=== PATIENT | female | born 1970 | race Caucasian/White ===

== ENCOUNTER 2024-03-02 19:45 | Emergency (ER) | payer BC ==
[2024-03-02 19:58] VITALS: BP 105/55; PULSE 84; RESP 18; TEMP 97.8; BMI 35.4
[2024-03-02] MEDS ORDERED: FAMOTIDINE 20 MG/50 ML IVPB 20 MG/50 ML MG IVPB ONE (21:42)
[2024-03-02] MEDS ORDERED: ACETAMINOPHEN INJECTION 100 ML IVPB ONE (21:42)
[2024-03-02] MEDS ORDERED: ONDANSETRON 4 MG/2 ML VIAL ONE (21:42)
[2024-03-02 21:44] LABS: BASO % 0.6 % (0-2.0); EOS % 5.3 % (0-4.5); HEMATOCRIT 40.3 % (32.4-45.2); HEMOGLOBIN 13.8 GM/dL (10.7-15.3); LYMPH % 34.1 % (8-40); MCH 29.6 pg (25.7-33.7); MCHC 34.4 g/dl (32.0-36.0); MEAN CELL VOLUME 86.3 fl (80-96); MEAN PLT VOLUME 8.1 fl (7.5-11.1); MONO % 6.6 % (3.8-10.2); NEUT % 53.4 % (42.8-82.8); PLATELET COUNT 271 10^3/uL (134-434); RBC 4.67 M/mm3 (3.60-5.2); RDW 14.1 % (11.6-15.6); WHITE BLOOD COUNT 8.5 K/mm3 (4.0-10.0)
[2024-03-02] MEDS ORDERED: ONDANSETRON *ODT* 4 MG TABLET ONE (21:49)
[2024-03-02] MEDS ORDERED: FAMOTIDINE 20 MG TABLET ONE (21:49)
[2024-03-02] MEDS ORDERED: ACETAMINOPHEN 325 MG TABLET (FP) ONE (21:50)
[2024-03-02 21:56] LABS: INR 1.05 (0.83-1.09); PROTHROMBIN TIME (PATIENT) 11.9 SEC (9.7-13.0)
[2024-03-02] MEDS: FAMOTIDINE 20 MG/50 ML IVPB 20 MG/50 ML MG IVPB ONE (21:59)
[2024-03-02] MEDS: ONDANSETRON 4 MG/2 ML VIAL IVPUSH ONE (21:59)
[2024-03-02] MEDS: ACETAMINOPHEN 1000 MG/100 ML BAG IVPB ONE (21:59)
[2024-03-02 22:00] LABS: POTASSIUM 3.8 mmol/L (3.5-5.1)
[2024-03-02] MEDS: ACETAMINOPHEN 500 MG TABLET (FP) PO ONE (22:00)
[2024-03-02] MEDS: FAMOTIDINE 10 MG TABLET PO ONE (22:00)
[2024-03-02] MEDS: ONDANSETRON *ODT* 4 MG TABLET SL ONE (22:00)
[2024-03-02 22:02] LABS: ALBUMIN 3.4 g/dl (3.4-5.0); BLOOD UREA NITROGEN 14.9 mg/dL (7-18)
[2024-03-02 22:05] LABS: CREATININE 0.9 mg/dL (0.55-1.3)
[2024-03-02 22:07] LABS: BILIRUBIN,TOTAL 0.3 mg/dL (0.2-1); TOT PROT 6.8 g/dl (6.4-8.2)
[2024-03-02 22:20] LABS: URINE APPEARANCE CLEAR; URINE BILIRUBIN NEGATIVE (NEGATIVE); URINE COLOR YELLOW; URINE GLUCOSE (UA) NEGATIVE (NEGATIVE); URINE KETONE NEGATIVE (NEGATIVE); URINE LEUK ESTERASE NEGATIVE (NEGATIVE); URINE NITRITE NEGATIVE (NEGATIVE); URINE PROTEIN NEGATIVE (NEGATIVE); URINE UROBILINOGEN 0.2 mg/dL (0.2-1.0)
== END 2024-03-03 01:22 | disposition home or self-care (01) ==
LOC: JER 19:45
DX: R10.11 Right upper quadrant pain (principal); R11.0 Nausea; R68.83 Chills (without fever)
CPT/HCPCS: 36415; 76705-TC; 80053; 81003; 83690; 84484; 85025; 85610; 86850; 86900; 86901; 87086; 93005; 93010; 99285-25; Q0162

== ENCOUNTER 2025-06-10 11:18 | Emergency (ER) | payer BC ==
[2025-06-10 11:29] VITALS: BP 107/57; PULSE 94; RESP 18; TEMP 98.1; BMI 33.6
[2025-06-10] MEDS ORDERED: KETOROLAC TROMETHAMINE 30 MG/1 ML VIAL ONE (12:10)
[2025-06-10] MEDS: KETOROLAC TROMETHAMINE 30 MG/1 ML VIAL IM ONE (12:13)
== END 2025-06-10 13:32 | disposition home or self-care (01) ==
LOC: JERFT 11:18
PROC: 3E0233Z Introduction of Anti-inflammatory into Muscle, Percutaneous Approach (ICD-10-PCS; principal; 2025-06-10)
DX: S80.01XA Contusion of right knee, initial encounter (principal); W01.0XXA Fall on same level from slipping, tripping and stumbling without subsequent striking against object, initial encounter; Y92.520 Airport as the place of occurrence of the external cause
CPT/HCPCS: 73562-TC-RT-FY; 99284-25